=== PATIENT | male | born 1980 | race Caucasian/White ===

== ENCOUNTER → 2025-07-16 07:32 | Outpatient (REF) | payer BC, SELFPAY ==
[2025-07-16 10:12] LABS: ALT (SGPT) 32 U/L (0-50); AST (SGOT) 79 U/L (17-59); Albumin 3.2 g/dl (3.5-5.0); Alkaline Phosphatase 158 U/L (38-126); Blood Urea Nitrogen 10 mg/dl (9-20); Calcium 8.4 mg/dl (8.4-10.2); Carbon Dioxide 26 mmol/L (22-30); Chloride 108 mmol/L (98-107); Glucose 91 mg/dl (70-99); Potassium 4.5 mmol/L (3.5-5.1); Sodium 138 mmol/L (135-145); Total Protein 6.8 g/dl (6.3-8.2); eGFR > 60.00
[2025-07-16 10:14] LABS: INR 2.15; PT 24.1 Sec (11.4-14.6)
[2025-07-16 10:15] LABS: APTT 39.5 Sec (23.4-35.0)
[2025-07-16 10:53] LABS: Urine Character Clear (Clear)
[2025-07-16 12:06] LABS: Urine Red Blood Cell 0-2 /HPF (0-2); Urine Squamous Cell 0-2 /LPF (Few)
== END ==
LOC: HWRAD 07:32
PROVIDERS: ATTENDING PHYSICIAN Internal Medicine; FAMILY PHYSICIAN Student in an Organized Health Care Education/Training Program
DX: K70.30 Alcoholic cirrhosis of liver without ascites (principal); K70.10 Alcoholic hepatitis without ascites
CPT/HCPCS: 36415; 76700; 80053; 81003; 81015; 82248; 85610; 85730; 87040

== ENCOUNTER 2025-07-23 06:21 | Day surgery (SDC) | payer BC, SELFPAY | END 2025-07-23 10:04 | disposition home or self-care (01) | LOC: GI 06:21 | PROVIDERS: ATTENDING PHYSICIAN Internal Medicine Gastroenterology | DX: I85.10 Secondary esophageal varices without bleeding (principal); R63.4 Abnormal weight loss; K76.6 Portal hypertension; K26.9 Duodenal ulcer, unspecified as acute or chronic, without hemorrhage or perforation; K20.90 Esophagitis, unspecified without bleeding; K74.60 Unspecified cirrhosis of liver; K31.89 Other diseases of stomach and duodenum; Z13.810 Encounter for screening for upper gastrointestinal disorder | CPT/HCPCS: 43239; 88305; 88342 ==

== ENCOUNTER → 2025-07-25 08:02 | Outpatient (REF) | payer BC, SELFPAY ==
[2025-07-25 09:42] LABS: Hematocrit 35.4 % (39.0-52.0); Hemoglobin 12.2 g/dL (13.0-18.0); Mean Corp Hgb Conc. 34.5 g/dL (33.0-37.0); Mean Corpuscular Volume 97.3 fL (80.0-94.0); Nucleated Red Blood Cells % 0 % (-); Platelet Count 135 10^3/uL (130-400); Red Cell Dist. Width 16.8 % (11.5-14.5)
[2025-07-25 10:01] LABS: INR 2.02; PT 23.3 Sec (11.4-14.6)
[2025-07-25 10:02] LABS: APTT 30.3 Sec (23.4-35.0)
[2025-07-25 10:22] LABS: ALT (SGPT) 76 U/L (0-50); AST (SGOT) 106 U/L (17-59); Albumin 3.1 g/dl (3.5-5.0); Alkaline Phosphatase 117 U/L (38-126); Blood Urea Nitrogen 18 mg/dl (9-20); Calcium 8.6 mg/dl (8.4-10.2); Carbon Dioxide 28 mmol/L (22-30); Chloride 108 mmol/L (98-107); Glucose 66 mg/dl (70-99); Potassium 3.9 mmol/L (3.5-5.1); Sodium 139 mmol/L (135-145); Total Protein 6.3 g/dl (6.3-8.2); eGFR > 60.00
== END ==
LOC: REG 08:02
PROVIDERS: ATTENDING PHYSICIAN Internal Medicine; FAMILY PHYSICIAN Student in an Organized Health Care Education/Training Program
DX: K70.10 Alcoholic hepatitis without ascites (principal)
CPT/HCPCS: 36415; 80053; 85025; 85610; 85730

== ENCOUNTER 2025-07-31 09:52 | Inpatient (IN) | payer BC, SELFPAY ==
[2025-07-31] VITALS (13 sets, daily range): BP systolic 94–116; BP diastolic 52–73; BMI 23.9; BMI 22.3
[2025-07-31 05:43] LABS: COVID-19 Antigen Negative (Negative)
--- NOTE | 2025-07-31 06:05 | ED.GENMED ---
History of Present Illness
General
Chief Complaint: Fever
Source: patient and spouse
Exam Limitations: none
Time Seen by Provider: 07/31/25 05:52
History of Present Illness
History of Present Illness:
45-year-old male with a history of alcoholic cirrhosis presents with shaking chills and fever overnight. Started late last evening. 102 temp at 4 AM. No antipyretics. Denies other focal symptoms denying any sore throat respiratory symptoms chest
pain abdominal pain nausea vomiting urinary symptoms rash etc. Patient feels moderately improved at this time. Currently on 40 of prednisone a day for his cirrhosis
Past History
Past History
ED Past Medical History: Other (Cirrhosis/portal hypertension)
ED Past Surgical History: None
Review of Systems
Review of Systems
All Other Systems: Not applicable
Constitutional: Reports fever and chills
EENT: Reports no symptoms
Respiratory: Reports no symptoms
Cardiac: Reports no symptoms
ABD/GI: Reports no symptoms
: Reports no symptoms
Phy Exam
Physical Exam
Physical Exam:
GENERAL: Alert and oriented in no apparent distress
EYE: Orbits normal.
NECK: Supple, no significant adenopathy.
ENT: Pharynx without erythema
CARDIAC: Regular rate and rhythm without any obvious murmurs.
LUNGS: Clear breath sounds,normal
ABDOMEN: Soft, without focal tenderness or distention
NEUROLOGICAL: Alert and oriented , grossly non-focal
SKIN: Warm and dry, no rash or lesion, no discoloration, skin intact.
MUSCULOSKELETAL: No edema,no deformity.Good color
PSYCH: Normal and appropriate interaction.
Course
Orders/Labs/Results
Orders:
Orders
07/31/25 05:15
Ammonia Urgent
COVID-19 Antigen Urgent
Source: Nasal Swab
Complete Blood Count/With Diff Urgent
Comprehensive Metabolic Panel Urgent
Influenza A+B Rapid Molecular Urgent
ROMARIO Source: Nasal Swab
Specimen Description:
07/31/25 05:33
Lactic Acid Urgent
Blood Culture Urgent
ROMARIO Source: Blood/Venous
Specimen Description:
07/31/25 Breakfast
Regular
At Your Request: Full Participation
Does patient need a safe tray?: No
07/31/25 06:04
CXR2 [CR Chest - 2 Views ] Urgent
Comment:
Reason For Exam: fever
07/31/25 06:27
Ehrlichia/Anaplasma by PCR [S] Urgent
Lyme Progressive Urgent
PT/INR [Prothrombin Time] Urgent
PTT Urgent
Blood Parasites Urgent
ROMARIO Source: Blood/Venous
Specimen Description:
US Abdomen Complete/Upper Urgent
Comment:
Reason For Exam: elevated lfts. fever
07/31/25 06:28
Urinalysis Reflex To Culture Urgent
Date Specimen was Collected: 07/31/25
Time Specimen was Collected: 06:23
07/31/25 07:37
Piperacillin/Tazo 4.5 Gram [Zosyn] 4.5 gram in 100 ml IV NOW
07/31/25 07:56
Hydrocortisone Sod Succinate [Solu-Cortef] 100 mg IV NOW STA
07/31/25 09:27
GASTROINTESTINAL CONSULT Routine
Consulting Provider: Dacia Richards
Was physician already notified: Yes
07/31/25 09:29
Admit/Transfer Patient As Directed
Co-Sign Provider:
Level of Care: Inpatient admission
Assign to:: Telemetry
Physician / Group: svitlana vasquez
Diagnosis: Pneumonia,Liver cirrhosis,hepatic encephalopathy
Reason for Telemetry: Arrhythmia
Date to Stop Telemetry: 08/03/25
Time to Stop Telemetry: 11:00
Reason for Hospitalization: Pneumonia,Liver cirrhosis,hepatic encephalopathy
Expected length of stay greater than two midnights?: Yes
ELOS- Estimated Length of Stay in days: 3
I certify the patient meets the requirements for IP care: Yes
PRN Pain Medication Management As Directed
May give lesser potent ordered pain med per pt: Yes
preference::
Protocol:: Medication orders for pain may be administered in a
manner that supports deferring to patient preference
when the pt is:
- Requesting an ordered lesser potent pain medication.
Least to most potent pain medications are defined
as: acetaminophen < NSAID < tramadol < opioids
(morphine, oxycodone, hydromorphone).
- Requesting a lesser dose of the same medication IF
ORDERED.
- Requesting a less intrusive route of administration
if both routes are prescribed by the provider (PO <
IV).
07/31/25 09:30
Code Status As Directed
Resuscitation Status: Full Code
07/31/25 10:00
Lactulose [Duphalac/Chronulac] 20 grams PO BID
07/31/25 11:13
Activity As Directed
Activity Level: As Tolerated
Intake/ Output As Directed
Frequency: Per unit guidelines
Pneumatic Compression Sleeves As Directed
Type: Knee high
Vital Signs As Directed
Frequency: Per unit guidelines
Weight As Directed
Frequency: Daily
Pulse Ox/spot Check [RESP] Routine
Quantity: 1
DX Deep Vein Thrombosis Video Routine
07/31/25 11:36
Blood Culture Urgent
ROMARIO Source: Blood/Venous
Specimen Description:
07/31/25 12:59
Vancomycin MRSA PCR Screen Routine
ROMARIO Source: N
Specimen Description:
Comment: Changed per pharmacy protocol
07/31/25 14:00
Piperacillin/Tazo 3.375 Gram [Zosyn] 3.375 gram in 50 ml IV Q6H
07/31/25 22:00
Diazepam [Valium] 2 mg PO HS
Propranolol [Inderal] 10 mg PO HS
08/01/25 06:53
Complete Blood Count/With Diff IN AM
Comprehensive Metabolic Panel IN AM
PTT IN AM
Prothrombin Time IN AM
08/01/25 08:00
Famotidine [Pepcid] 20 mg PO DAILY
Prednisone [Deltasone] 40 mg PO DAILY
Ursodiol [Malik] 500 mg PO DAILY
08/02/25 06:00
Complete Blood Count/With Diff IN AM
Comprehensive Metabolic Panel IN AM
PTT IN AM
Prothrombin Time IN AM
08/03/25 06:00
Complete Blood Count/With Diff IN AM
Comprehensive Metabolic Panel IN AM
PTT IN AM
Prothrombin Time IN AM
08/03/25 11:00
DC Protocol for Telemetry ONCE
08/04/25 06:00
Complete Blood Count/With Diff IN AM
Comprehensive Metabolic Panel IN AM
PTT IN AM
Prothrombin Time IN AM
08/05/25 06:00
Complete Blood Count/With Diff IN AM
Comprehensive Metabolic Panel IN AM
PTT IN AM
Prothrombin Time IN AM
Abnormal Lab Results
07/31/25 07/31/25
05:15 06:27
WBC 17.7 H 10^3/uL
(4.8-10.8)
RBC 3.82 L 10^6/uL
(4.70-6.10)
Hgb 12.9 L g/dL
(13.0-18.0)
Hct 36.6 L %
(39.0-52.0)
MCV 95.8 H fL
(80.0-94.0)
MCH 33.8 H pg
(27.0-31.0)
RDW 17.2 H %
(11.5-14.5)
Plt Count 98 L D 10^3/uL
(130-400)
Abs Immat Gran (auto) 0.1 H 10^3/uL
(0-0.05)
Absolute Neuts (auto) 12.3 H 10^3/uL
(1.4-6.5)
Absolute Monos (auto) 2.4 H 10^3/uL
(0.1-0.6)
Lymphocytes % 14.5 L %
(20.5-51.1)
Monocytes % 13.6 H %
(1.7-9.3)
PT 24.1 H Sec
(11.4-14.6)
Sodium 132 L mmol/L
(135-145)
Calcium 8.3 L mg/dl
(8.4-10.2)
Total Bilirubin 5.4 H mg/dl
(0.2-1.3)
AST 138 H U/L
(17-59)
ALT 102 H U/L
(0-50)
Ammonia 115 H umol/L
(9-30)
Total Protein 5.9 L g/dl
(6.3-8.2)
Albumin 3.0 L g/dl
(3.5-5.0)
07/31/25 05:15
07/31/25 05:15
Vital Signs
Initial and Last Documented VS:
Initial Vital Signs
Temp Pulse Resp BP Pulse Ox
99.8 F 95 20 111/73 94
07/31/25 04:59 07/31/25 04:59 07/31/25 04:59 07/31/25 04:59 07/31/25 04:59
Last Documented Vital Signs
Temp Pulse Resp BP Pulse Ox
98.3 F 74 12 114/71 98
08/01/25 11:00 08/01/25 11:00 08/01/25 11:00 08/01/25 11:00 08/01/25 11:26
MDM/Problems Addressed
Differential Diagnosis Includes:
45-year-old male sudden shaking chills and fever at home. No obvious clinical source. Appears nontoxic at this time. Workup in progress. To consider bacteremia, tickborne illness, viral illness. Patient is somewhat immunosuppressed on
prednisone. His abdomen is totally benign his lungs are clear he is in no respiratory distress.
*Radiology
Radiology exam reviewed: radiology read reviewed (Hepatic cirrhosis. Small amount of perihepatic/perisplenic ascites. Cholelithiasis. Gallbladder wall thickening.) and other (Possible small pneumonia on x-ray)
*Pulse Oximetry
SaO2: 97
Oxygen Mode of Delivery: Room air
Patient hypoxic: no
*Critical Care Note
Total Time (30-74mins, 75-104mins- exclusive of procedures): Not Applicable
Data Reviewed
Review of Other/Old Records Reveals: Labs, Records and Testing
Update Note
Update Note:
Elevated ammonia level. Mildly sleepy but fully alert. Discussed starting lactulose. Hospitalist and gastroenterology has to hold off until they evaluate. Source of fever uncertain at this time. Possibly gallbladder related. He has no
tenderness in the right upper quadrant however. Will start Zosyn. Also placed a call to patient's stave inspector at [facility]. Awaiting callback.
Patient rechecked multiple times. Is remained stable. Questionable pneumonia on x-ray
ED Attending Note
-
Portions of this chart may have been created with voice recognition software.� Occasional wrong word or��sound alike� substitutions may have occurred due to the inherent limitations of voice recognition software.
Discharge Plan
Departure
Patient Disposition: Admit
Date of Disposition: 07/31/25
Time of Disposition: 07:57
Presentation/result/management discussed w/ accepting MD/DO: gi
Discharge Problem:
Fever/immunosuppressed, Elevated transaminase, History of cirrhosis, Possible pneumonia
Interventions
Interventions:
*Risk Screen - Suicide Last Done: 07/31/25 04:59
*General Assessment Last Done: 07/31/25 04:59
*Neglect/Abuse Screening Last Done: 07/31/25 05:55
*ED- Fall Risk Assessment Last Done: 07/31/25 05:55
*ED COVID-19 Vaccine History Last Done: 07/31/25 05:55
*Nursing Disposition Last Done: 07/31/25 10:56
ED- Neurological Assessment Last Done: 07/31/25 05:55
ED-Skin Assessment Last Done: 07/31/25 05:55
Discharge Date and Time
Discharge Date/Time: 07/31/25 11:09
[2025-07-31 06:16] LABS: Ammonia 115 umol/L (9-30)
[2025-07-31 06:18] LABS: ALT (SGPT) 102 U/L (0-50); AST (SGOT) 138 U/L (17-59); Albumin 3.0 g/dl (3.5-5.0); Alkaline Phosphatase 126 U/L (38-126); Blood Urea Nitrogen 15 mg/dl (9-20); Calcium 8.3 mg/dl (8.4-10.2); Carbon Dioxide 25 mmol/L (22-30); Chloride 103 mmol/L (98-107); Estimated Creatinine Clearance > 125 ml/min; Glucose 99 mg/dl (70-99); Potassium 4.4 mmol/L (3.5-5.1); Sodium 132 mmol/L (135-145); Total Protein 5.9 g/dl (6.3-8.2); eGFR > 60.00
[2025-07-31 06:21] LABS: Hematocrit 36.6 % (39.0-52.0); Hemoglobin 12.9 g/dL (13.0-18.0); Mean Corp Hgb Conc. 35.2 g/dL (33.0-37.0); Mean Corpuscular Volume 95.8 fL (80.0-94.0); Nucleated Red Blood Cells % 0 % (-); Platelet Count 98 10^3/uL (130-400); Red Cell Dist. Width 17.2 % (11.5-14.5)
[2025-07-31] MEDS: ZOSYN 100 IV (07:45)
[2025-07-31 07:59] LABS: APTT 32.0 Sec (23.4-35.0); INR 2.11; PT 24.1 Sec (11.4-14.6)
[2025-07-31 08:01] LABS: Urine Character Clear (Clear)
[2025-07-31] MEDS: SOLU-CORTEF 100 MG IV (08:07)
--- NOTE | 2025-07-31 09:33 | HPS.HSE ---
Family Physician
-
Family Physician: Osmel Bowman, DO
Chief Complaint
-
Fever
History of Present Illness
45-year-old male with past medical history of alcohol cirrhosis, portal hypertension, advanced colon polyp came to the hospital with fever. Per patient he has been feeling better after he quit alcohol about a month ago. Overnight he started
feeling lethargic/weak. Per patient temp was 101.8 at home. Denies any sick contacts. Denies any abdominal pain, nausea, vomiting, diarrhea, constipation. Denies any chest pain, shortness of breath.
Medical History
Past Medical History
Past Medical History: Reports Other (Alcohol liver cirrhosis, colon polyp)
Past Surgical History: Reports None
Social History
Tobacco: Non-smoker
Alcohol: Former
Drug: None
Family History
Family History: Not pertinent
Allergies / Home Medications
Allergies reflects when Allergies were last updated in [employer].
Home Medications with original date entered in [employer]
Allergy/Medication List:
Allergies
Allergy/AdvReac Type Severity Reaction Status Date / Time
morphine Allergy Swelling Verified 07/31/25 12:30
Home Medications
diazepam 2 mg tablet (Valium) 2 mg PO HS Mental Health/Anxiety 07/31/25
prednisone 20 mg tablet 40 mg PO DAILY inflammation 07/31/25
propranolol 10 mg tablet 10 mg PO HS Liver Issues 07/31/25
ursodiol 250 mg tablet 500 mg PO DAILY gallbladder issue 07/31/25
Review of Systems
-
History Source: Patient
A 12 point ROS was completed and negative except as noted: Yes
Constitutional: Reports Fever and Fatigue
Physical Exam
Vital Signs
Vital Signs
Temp Pulse Resp BP Pulse Ox
99.8 F 81 19 111/63 95
07/31/25 07:51 07/31/25 09:00 07/31/25 09:00 07/31/25 09:00 07/31/25 09:00
Physical Exam
General: Well Nourished and No Apparent Distress
HEENT: NormoCephalic and Moist mucous membranes; No Anicteric
Respiratory: Clear and Non Labored Respirations; No Wheezes
Cardiac: S1/S2 and Regular Rhythm
Breast: Deferred by me
GI: Soft, Non Tender, Non Distended and Normal Bowel Sounds
Rectal: Deferred by Provider
Genito-urinary: No Daniel
Musculoskeletal: No Edema
Neuro: Awake, Alert and Oriented
Psych: Calm and Intact Judgment/Insight
Laboratory Results
-
07/31/25 05:15
07/31/25 05:15
Laboratory Results
PT 24.1 Sec (11.4-14.6) H 07/31/25 06:27
INR 2.11 07/31/25 06:27
APTT 32.0 Sec (23.4-35.0) 07/31/25 06:27
Lactic Acid 1.2 mmol/L (0.7-2.0) 07/31/25 05:33
Total Bilirubin 5.4 mg/dl (0.2-1.3) H 07/31/25 05:15
AST 138 U/L (17-59) H 07/31/25 05:15
ALT 102 U/L (0-50) H 07/31/25 05:15
Alkaline Phosphatase 126 U/L (38-126) 07/31/25 05:15
Data Reviewed
-
Diagnostic Radiology: Report Reviewed by me and Discussed with Patient
Ultrasound: Report Reviewed by me and Discussed with Patient
Lab Data: Labs Reviewed by me and Discussed with Patient
Impression/Plan
-
Sepsis (leukocytosis, tachypnea) suspect could be secondary to pneumonia
Chest x-ray with possible pneumonia
Start empiric antibiotic, check MRSA screen
Check blood culture
COVID-negative, UA without UTI. Lyme, Ehrlichia pending
Abdominal ultrasound with moderate hepatic cirrhosis, cholelithiasis. Severe diffuse gallbladder wall thickening without evidence of abnormal gallbladder distention, most consistent with inflammatory wall thickening secondary hepatic cirrhosis.
Currently patient has no abdominal pain. consider HIDA if do not improve
LFTs has been previously elevated and still high with elavted laura
GI consulted
Patient has been following up with Dr. Boston from hepatology
Per patient he has been started on prednisone by his GI. Added Pepcid
Recent EGD 07/23 outpatient with esophageal varices
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
Monitor
hx of alcohol use
last drink about a month ago
monitor
Hyponatremia
Monitor
Hepatic encephalopathy
Ammonia 113, start lactulose
DVT prophylaxis
SCDs
Full code
I spent a total of 76 minutes with the patient or on the floor. More than 50% of this time involved counseling and coordination of care.
--- NOTE | 2025-07-31 10:05 | PHA.VAN.IN ---
Assessment
- Assessment
Renal Function: Appears similar to baseline
Concomitant Antimicrobials: piperacillin/tazobactam
AUC Dosing Plan
- Dosing Variables
Dosing Weight (kg): 82
Dosing CrCl (ml/min): 125
Vd coefficient (L/kg): 0.7
- Empiric Dosing
Maintenance Regimen: Vanc 1500mg Q12H - first dose now then 1800 in lieu of load
Estimated AUC (mcg*h/mL): 523
Estimated Peak (mcg*h/mL): 36
Estimated Trough (mcg/ml): 11.5
Estimated Half Life (H): 6.4
- Monitoring
No levels ordered at this time: consider levels in next few days
Pharmacokinetics Vancomycin I
- -
Patient Age: 45
Patient Sex: Male
Vancomycin Day #: 1
Indication: Pulmonary/Respiratory
Requesting Provider: Dr. Lynch
Pertinent Antimicrobial Allergies:
no pertinent antibiotic allergies
Height / Weight:
Height 6 ft 1 in
Actual Weight 82.1 kg
Pertinent Past Medical History: cirrhosis
- Vital Signs / Lab Results
Temp Pulse Resp BP Pulse Ox
99.8 F 81 19 111/63 95
07/31/25 07:51 07/31/25 09:00 07/31/25 09:00 07/31/25 09:00 07/31/25 09:00
Lab Results - Hematology
07/31/25
05:15
WBC 17.7 H
Lab Results - Chemistry
07/31/25
05:15
BUN 15
Creatinine 0.8
Estimated Creat Clear > 125
Albumin 3.0 L
07/31/25
05:33
Lactic Acid 1.2
Lab Results - Urine
07/31/25
06:28
Urine Nitrite (Reflex) Negative
Leukocyte Esterase Rfl Negative
Microbiology Results
07/31/25 05:15 Influenza Types A & B ([facility]) - Final
Nasal Swab Negative for Influenza A & B, NAAT
Negative results must be combined with clinical observations
and patient history.
Nucleic Acid Amplification test (NAAT)performed on the
[employer] platform.
--- NOTE | 2025-07-31 11:37 | CON.GI ---
Addendum entered and electronically signed by Devner Richards MD 07/31/25 19:19:
I saw and examined the patient.
The LITIGATION ASSISTANT's note was reviewed and I agree with the note.
-fever/-CXR with early PNA/ sepsis on admission
-leukocytosis (infection vs steroid )
-ETOH hepatitis started on steroid course prior to admission 07/16 ( DF 62 )
- with improvement. current labs this admission DF 56.5 (control of 13), MELD 3.0 23
-elevated ammonia with concern for hepatic encephalopathy on admission but AAO x 3
- hx of ETOH abuse
-cirrhosis
plan
hold steroids
daily MELD labs
mx of sepsis/ PNA as per medical team
follow up with hepatology on discharge ( will request last visit records )
Original Note:
Consultation
-
Date/Time Consultation Requested: 07/31/25 09
Date/Time Consultation Performed: 07/31/25 1130
Requesting Provider: Domenic Lynch MD
Performing Provider: JUAN Méndez, denver Richards MD
Reason for Consultation: fever/ confusion
Medical History
Chief Complaint / HPI
Chief Complaint: rectal bleeding
History of Present Illness:
This is a 45 year old male with a past medical history of alcoholic cirrhosis (hx heavy ETOH use til rehab around 2020 then clean for 1 year and recent ETOH 2 shot at night til 5 weeks ago), portal HTN, no prior HE, EV bleeding (but noted Grade I
EV on EGD 07/2025 with portal HTN), or ascites, duodenal ulcers, colon polyps, prior endoscopic mucosal resection of a 25mm sigmoid polyp on 10/25/23 at [facility] with post polypectomy bleeding at [place], anxiety, rosacea and recent
evaluation with Dr. Allen in June with jaundice and wt loss with concern for ETOH hepatitis with hx cirrhosis. He was recommended EGD, labs to calculate DF, improved nutrition, liver serology work up , Dr. Boston evaluation and stressed ETOH
abstinence. Pt was started on Prednisolone and pepcid and started 07/16 for elevated DF. Pt had hepatology follow up with Adore Wilson and also scheduled with Dr. Boston in August. He admits to feeling improved since starting steroids until last
PM. Pt now presents with fever up to 101.8 at home with feeling of chills.
In review with patient he admits to some forgetfulness but denies dysphagia, GERD, nausea, vomiting, abdominal pain, diarrhea, constipation or bleeding. recent EGD this month with grade A esophagitis, grade I EV,no bleeding, portal HTN, bx with
clip, non bleeding DU, colon 2022 done after bleeding with clot injected and clipped, diverticulosis, 2 other clips and polyps seen. Pt aware will need eventual repeat colonoscopy with hx advanced polyps. labs on admission with WBC 17.7, hbg 12,9,
hct 36.6, platelet 98,000, INR 2.11, Na 132, K 4.4, bili 5.4, AST 138, ALT 102, alk phos 126 ammonia 115. Per pt malik added for itching.
OP labs:
07/10- Actin 33 (normal to 19), AFP 3.8, A1At 225, PAVEL neg, AMA <20, celiac 1073- Imm A, TTg IGG 9, TTG IGA 6, ceruloplasmin 24.4 , ferritin 246,iron 103, TIBC 206, sat 50, GGT 135 hep panel neg, immunoglobulin G 1632, Immunoglobulin M 196
07/16- INR 2.15 bili 6.9, d bili 4.8, AST 79, ALT 32, alk phos 158, WBC 9.2, hbg 12.9, hct 26.4, platelets 111
07/16- MED 22, DF 62.1
07/25/25 Lille score good prognosis to continue 40mg daily x 28 days then 20mg daily x 2 weeks then stop
07/25- INR 2.02, hbg 12,2, WBC 13,6m platelet bili 4,4, AST 106, ALT 76, alk phos 117, albumin 3.1
07/31/25 WBc 17.7, hbg 12,9, hct 36.6, platelet 98,000, INR 2.11, Na 132, K 4.4, bili 5.4, AST 138, ALT 102, alk phos 126 ammonia 115
Past Medical History
Past Medical History: Other (alcohol abuse, alcoholic cirrhosis, recent ETOH hepatitis with start of Prednisolone 07/16/25 bGrade I EV, portal HTN, DU, HE (new), anxiety, rosacea)
Past Surgical History: None
Social History
Tobacco: Non-Smoker
Alcohol: Chronic Alcoholic (last drink 5 weeks ago )
Drug: None
Personal:
Living: With Family
Employment: Disabled (with liver issues )
Family History
Family History: Other (colon polyps (mother and father); father with hx alcoholism )
Allergies / Home Medications
Allergy/AdvReac Type Severity Reaction Status Date / Time
morphine Allergy Swelling Verified 07/31/25 04:58
�Medication �Instructions �Recorded
diazepam 2 mg tablet (Valium) 2 mg PO HS Mental Health/Anxiety 07/31/25
prednisone 20 mg tablet 40 mg PO DAILY inflammation 07/31/25
propranolol 10 mg tablet 10 mg PO HS Liver Issues 07/31/25
ursodiol 250 mg tablet 500 mg PO DAILY gallbladder issue 07/31/25
Review of Systems
-
History Source: Patient
Constitutional: Reports Fever and Other (wt up and down with liver issues)
EENT: Reports No Symptoms
Respiratory: Reports No Symptoms
Cardiac: Reports No Symptoms
Abdomen/GI: Reports No Symptoms
: Reports No Symptoms
Musculoskeletal: Reports No Symptoms
Skin: Reports No Symptoms
Neurological: Reports No Symptoms
Endocrine: Reports No Symptoms
Hematologic/Lymphatic: Reports No Symptoms
Vital Signs
Temp Pulse Resp BP Pulse Ox
98.4 F 61 12 108/64 97
07/31/25 11:31 07/31/25 11:31 07/31/25 11:31 07/31/25 11:31 07/31/25 11:31
Physical Exam
Exam
General: Other (some forgetfulness in exam )
HEENT: Normocephalic
Respiratory: Clear
Cardiac: Regular Rhythm
GI: Soft, Non Tender and Non Distended
Musculoskeletal: No Clubbing and No Cyanosis
Skin: Warm and Dry
Neuro: Awake, Alert and Other (forgetful to occasional question, mild asterixis )
Psych: Calm
Results
WBC 17.7 10^3/uL (4.8-10.8) H 07/31/25 05:15
Hgb 12.9 g/dL (13.0-18.0) L 07/31/25 05:15
Hct 36.6 % (39.0-52.0) L 07/31/25 05:15
MCV 95.8 fL (80.0-94.0) H 07/31/25 05:15
Plt Count 98 10^3/uL (130-400) L D 07/31/25 05:15
Absolute Neuts (auto) 12.3 10^3/uL (1.4-6.5) H 07/31/25 05:15
PT 24.1 Sec (11.4-14.6) H 07/31/25 06:27
INR 2.11 07/31/25 06:27
APTT 32.0 Sec (23.4-35.0) 07/31/25 06:27
Sodium 132 mmol/L (135-145) L 07/31/25 05:15
Potassium 4.4 mmol/L (3.5-5.1) 07/31/25 05:15
Chloride 103 mmol/L (98-107) 07/31/25 05:15
Carbon Dioxide 25 mmol/L (22-30) 07/31/25 05:15
BUN 15 mg/dl (9-20) 07/31/25 05:15
Creatinine 0.8 mg/dL (0.7-1.3) 07/31/25 05:15
Calcium 8.3 mg/dl (8.4-10.2) L 07/31/25 05:15
Total Bilirubin 5.4 mg/dl (0.2-1.3) H 07/31/25 05:15
AST 138 U/L (17-59) H 07/31/25 05:15
ALT 102 U/L (0-50) H 07/31/25 05:15
Alkaline Phosphatase 126 U/L (38-126) 07/31/25 05:15
Diagnostic Image Results:
07/31/25 US Abdomen Complete/Upper
1. Moderate hepatic cirrhosis.
2. Minimal upper abdominal perihepatic and perisplenic ascites.
3. Mild distention of the common hepatic duct.
4. Cholelithiasis.
5. Severe diffuse gallbladder wall thickening without evidence for abnormal gallbladder distention (most consistent with inflammatory wall thickening secondary to hepatic cirrhosis).
07/31/25 CXR
Patchy airspace disease in the right lower lobe could be early pneumonia
Prior GI Procedures:
07/23/25 EGD [place]- - LA Grade A esophagitis with no bleeding.
- Grade I esophageal varices with no bleeding and no stigmata of
recent bleeding.
- Portal hypertensive gastropathy.
- Biopsies were taken with a cold forceps for Helicobacter pylori
testing. There was bleeding from one of the biopsy sites and clip
placed with hemostasis achieved
- Non-bleeding duodenal ulcers with no stigmata of bleeding.
- Normal first portion of the duodenum and second portion of the
duodenum.
10/2023- colonscopy- - Preparation of the colon was fair due to blood.
- Diverticulosis in the left colon.
- Blood in the entire examined colon.
- Clot with vessel in the ascending colon secondary to
previous polypectomy. Injected. Clips were placed.
- 2 other clips and polyps seen in the colon
- No specimens collected.
---[address] Bojorquez for treatment of a bleeding site from a prior polypectomy. Fair prep to the cecum, left-sided diverticulosis, red blood found throughout the colon without active bleeding.� Large pulsating vessel seen in
the ascending that was endoscopically treated with several other polyps seen in the colon
---Colonoscopy:[facility], pt reports 7 polyps were seen, 6 were removed, but a larger sigmoid polyp was recommended for EMR removal, which was performed 10/25/[address] Lynch at [facility].
--- 2017EGD 09/07/17 for dyspepsia: grade A esophagitis, biopsies with chronic inflammation consistent with GERD, otherwise normal, negative for h.pylori and celiac.
Assessment / Plan
-
This is a 45 year old male with a past medical history of alcoholic cirrhosis (hx heavy ETOH use til rehab around 2020 then clean for 1 year and recent ETOH 2 shot at night til 5 weeks ago), portal HTN, no prior HE, EV bleeding (but noted Grade I
EV on EGD 07/2025 with portal HTN), or ascites, duodenal ulcers, colon polyps, prior endoscopic mucosal resection of a 25mm sigmoid polyp on 10/25/23 at [facility] with post polypectomy bleeding at [place], anxiety, rosacea and recent
evaluation with Dr. Allen in June with jaundice and wt loss with concern for ETOH hepatitis with hx cirrhosis. He was recommended EGD, labs to calculate DF, improved nutrition, liver serology work up , Dr. Boston evaluation and stressed ETOH
abstinence. Pt was started on Prednisolone and pepcid and started 07/16 for elevated DF. Pt had hepatology follow up with Adore Wilson and also scheduled with Dr. Boston in August. He admits to feeling improved since starting steroids until last
PM. Pt now presents with fever up to 101.8 at home with feeling of chills.
OP labs:
07/10- Actin 33 (normal to 19), AFP 3.8, A1At 225, PAVEL neg, AMA <20, celiac 1073- Imm A, TTg IGG 9, TTG IGA 6, ceruloplasmin 24.4 , ferritin 246,iron 103, TIBC 206, sat 50, GGT 135 hep panel neg, immunoglobulin G 1632, Immunoglobulin M 196
07/16- INR 2.15 bili 6.9, d bili 4.8, AST 79, ALT 32, alk phos 158, WBC 9.2, hbg 12.9, hct 26.4, platelets 111
07/16- MED 22, DF 62.1
07/25/25 Lille score good prognosis to continue 40mg daily x 28 days then 20mg daily x 2 weeks then stop
07/25- INR 2.02, hbg 12,2, WBC 13,6m platelet bili 4,4, AST 106, ALT 76, alk phos 117, albumin 3.1
07/31 WBc 17.7, hbg 12,9, hct 36.6, platelet 98,000, INR 2.11, Na 132, K 4.4, bili 5.4, AST 138, ALT 102, alk phos 126 ammonia 115
-fever/sepsis on admission
-leukocytosis (infection vs steroid vs hepatitis related)
-ETOH hepatitis with steroid course prior to admission
-elevated ammonia with concern for hepatic encephalopathy on admission
-ETOH abuse
-CXR with early PNA
-cirrhosis
-thrombocytopenia
-hyponatremia
-EV grade I Non bleeding on recent EGD
-recent noted DU
-hypoalbuminemia
other med problem:
- colon polyps and prior endoscopic mucosal resection of a 25mm sigmoid polyp on 10/25/23- due eventual follow up
PLAN:
Etiology of fever related to early PNA vs other
no documented fever since admission
elevated WBC may be steroids vs infection
cont abx on Vanco and Zosyn
cont lactulose for concern for HE-
await further work up with blood cx, UA neg, no ascites to tap on EGD
pt still remains on steroids with ETOH hepatitis -- reviewed with Dr. Richards will hold steroid for now with fever work up in progress
pt also on Malik -- unclear if PRN or standing dose -- may have been started by hepatology
will request records of recent follow up
current DF 56.5 (control of 13), MELD 3.0 23 cont to trend daily labs
-
-
Thank you for consultation and allowing me to participate in the patient's care. Please call the educational program director GI physician during the after hours with any questions or concerns.
[2025-07-31] MEDS: FLUSH (NSS) 1 FLUSH IV ×3 (12:24→17:58)
[2025-07-31] MEDS: VANCOCIN 530 MG IV ×2 (12:24→17:58)
[2025-07-31] MEDS: DUPHALAC/CHRONULAC 20 GRAMS PO ×2 (12:25→20:51)
--- NOTE | 2025-07-31 13:16 | PTCARENOTE ---
Received pt from ER via stretcher; accompanied by ER staff. Pt AAO x3, VEE; able to ambulate to bed without assistance; denies weakness/dizziness. VSS. On room air- pulse ox 97%, no SOB noted. Abd soft, rounded, to start low fat diet. Pt denies
abd discomfort at present. pt DTV, aware of need for urine specimen; urinal at bedside. Afebrile; skin jaundiced, intact. oriented to 4[place], currently resting in bed, no c/o. Will continue to m nitor.
[2025-07-31] MEDS: ZOSYN 50 IV ×2 (14:12→20:51)
--- NOTE | 2025-07-31 16:02 | PTCARENOTE ---
Pt napping for short intervals; easily arousable; alert, oriented x 3 when awake. VEE well. VSS. On room air- pulse ox 95%. Abd soft, rounded, vinita PO, no c/o abd discomfort. Pt DTV- urinal at bedside. Resting quietly at present. Will continue
to monitor.
[2025-07-31] MEDS: VALIUM PO (20:50)
[2025-07-31] MEDS: VALIUM 2 MG PO (20:50)
[2025-07-31] MEDS: INDERAL 10 MG PO (20:51)
[2025-08-01] MEDS: ZOSYN 50 IV ×4 (02:09→20:11)
[2025-08-01 03:45] VITALS: BP 97/55
[2025-08-01] MEDS: VANCOCIN 530 MG IV (05:07)
[2025-08-01 06:00] VITALS: BMI 22.8
[2025-08-01 07:00] VITALS: BP 111/63
[2025-08-01] MEDS: DUPHALAC/CHRONULAC 20 GRAMS PO ×2 (07:44→20:10)
[2025-08-01] MEDS: URSO 500 MG PO (07:45)
[2025-08-01] MEDS: PEPCID 20 MG PO (07:45)
[2025-08-01 08:20] LABS: Hematocrit 36.8 % (39.0-52.0); Hemoglobin 12.6 g/dL (13.0-18.0); Mean Corp Hgb Conc. 34.2 g/dL (33.0-37.0); Mean Corpuscular Volume 97.9 fL (80.0-94.0); Nucleated Red Blood Cells % 0 % (-); Platelet Count 91 10^3/uL (130-400); Red Cell Dist. Width 17.3 % (11.5-14.5)
[2025-08-01 08:26] LABS: APTT 32.3 Sec (23.4-35.0); INR 1.93; PT 22.5 Sec (11.4-14.6)
[2025-08-01 08:59] LABS: Ammonia 37 umol/L (9-30)
[2025-08-01 09:02] LABS: ALT (SGPT) 81 U/L (0-50); AST (SGOT) 85 U/L (17-59); Albumin 2.8 g/dl (3.5-5.0); Alkaline Phosphatase 126 U/L (38-126); Blood Urea Nitrogen 15 mg/dl (9-20); Calcium 8.2 mg/dl (8.4-10.2); Carbon Dioxide 30 mmol/L (22-30); Chloride 107 mmol/L (98-107); Estimated Creatinine Clearance > 125 ml/min; Glucose 83 mg/dl (70-99); Potassium 3.4 mmol/L (3.5-5.1); Sodium 140 mmol/L (135-145); Total Protein 5.7 g/dl (6.3-8.2); eGFR > 60.00
[2025-08-01] MEDS: KCL 40 MEQ PO (10:12)
[2025-08-01 11:00] VITALS: BP 114/71
--- NOTE | 2025-08-01 12:44 | W.PN.HOSP.TC ---
Today's Communication/Plan
-
Monitor vital signs see plan
Continue with lactulose
Monitor ammonia
Replete potassium
Monitor leukocytosis
Follow cultures
Continue with antibiotic
Assessment / Plan
Assessment / Plan
General: Well Nourished and No Apparent Distress
HEENT: NormoCephalic and Moist mucous membranes; No Anicteric
Respiratory: Clear and Non Labored Respirations; No Wheezes
Cardiac: S1/S2 and Regular Rhythm
GI: Soft, Non Tender, Non Distended and Normal Bowel Sounds
Genito-urinary: No Daniel
Musculoskeletal: No Edema
Neuro: Awake, Alert and Oriented
Psych: Calm and Intact Judgment/Insight
Sepsis (leukocytosis, tachypnea) suspect could be secondary to pneumonia
Chest x-ray with possible pneumonia
MRSA screen negative. DC vancomycin. Continue with Zosyn
blood culture NGTD
COVID-negative, UA without UTI. Lyme, Ehrlichia pending
Abdominal ultrasound with moderate hepatic cirrhosis, cholelithiasis. Severe diffuse gallbladder wall thickening without evidence of abnormal gallbladder distention, most consistent with inflammatory wall thickening secondary hepatic cirrhosis.
Currently patient has no abdominal pain.
LFTs has been previously elevated and still high with elavted laura
GI following
Patient has been following up with Dr. Boston from hepatology
Holding prednisone per GI recommendation
Recent EGD 07/23 outpatient with esophageal varices
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
Monitor
Hypokalemia
Replete
hx of alcohol use
last drink about a month ago
monitor
Hyponatremia
Monitor
Hepatic encephalopathy
Ammonia 113 on admission, continue lactulose
Ammonia now 37
DVT prophylaxis
SCDs
Full code
Anticipated Discharge: Within 24 hours
Subjective/Interval History
-
Date of Service: August 01, 2025
Denies pain
Objective Data
-
Labs:
Laboratory Results
08/01/25
06:53
WBC 19.5 H
Hgb 12.6 L
Hct 36.8 L
Plt Count 91 L
PT 22.5 H
INR 1.93
APTT 32.3
Sodium 140 D
Potassium 3.4 L
Chloride 107
Carbon Dioxide 30
BUN 15
Creatinine 0.7
Glucose 83
Calcium 8.2 L
Total Bilirubin 4.1 H
AST 85 H
ALT 81 H
Alkaline Phosphatase 126
Vital Signs:
Vital Signs
Temp Pulse Resp BP Pulse Ox
98.3 F 74 12 114/71 98
08/01/25 11:00 08/01/25 11:00 08/01/25 11:00 08/01/25 11:00 08/01/25 11:26
I&O
07/31/25 08/01/25 08/02/25
06:59 06:59 06:59
Intake Total 1498 / 1498
Balance 1498 / 1498
--- NOTE | 2025-08-01 13:32 | CM ---
Alert awake oriented patient who lives with Estefanía in a 3 story with 0 steps and 25 steps to bed/bathroom. Pt is independent in driving and all ADLs.He uses no adaptive devices.
NO VN/SNF hx
Pharmacy [facility]
PCP DR Bowman
PLAN Home no needs
[2025-08-01 15:00] VITALS: BP 107/68
--- NOTE | 2025-08-01 15:04 | W.PN.GI.CBS2 ---
Addendum entered and electronically signed by Dacia Richards MD 08/01/25 15:13:
Advised on alcohol abstinence
Original Note:
Today's Communication / Plan
-
continue current mx as per medical team
d/c steroids
Assessment / Plan
-
This is a 45 year old male with a past medical history of alcoholic cirrhosis (hx heavy ETOH use til rehab around 2020 then clean for 1 year and recent ETOH 2 shot at night til 5 weeks ago), portal HTN, no prior HE, EV bleeding (but noted Grade I
EV on EGD 07/2025 with portal HTN), or ascites, duodenal ulcers, colon polyps, prior endoscopic mucosal resection of a 25mm sigmoid polyp on 10/25/23 at [facility] with post polypectomy bleeding at [place], anxiety, rosacea and recent
evaluation with Dr. Allen in June with jaundice and wt loss with concern for ETOH hepatitis with hx cirrhosis. He was recommended EGD, labs to calculate DF, improved nutrition, liver serology work up , Dr. Boston evaluation and stressed ETOH
abstinence. Pt was started on Prednisolone and pepcid and started 07/16 for elevated DF. Pt had hepatology follow up with Adore Wilson and also scheduled with Dr. Boston in August. He admits to feeling improved since starting steroids until last
PM. Pt now presents with fever up to 101.8 at home with feeling of chills.
OP labs:
07/10- Actin 33 (normal to 19), AFP 3.8, A1At 225, PAVEL neg, AMA <20, celiac 1073- Imm A, TTg IGG 9, TTG IGA 6, ceruloplasmin 24.4 , ferritin 246,iron 103, TIBC 206, sat 50, GGT 135 hep panel neg, immunoglobulin G 1632, Immunoglobulin M 196
07/16- INR 2.15 bili 6.9, d bili 4.8, AST 79, ALT 32, alk phos 158, WBC 9.2, hbg 12.9, hct 26.4, platelets 111
07/16- MED 22, DF 62.1
07/25/25 Lille score good prognosis to continue 40mg daily x 28 days then 20mg daily x 2 weeks then stop
07/25- INR 2.02, hbg 12,2, WBC 13,6m platelet bili 4,4, AST 106, ALT 76, alk phos 117, albumin 3.1
07/31 WBc 17.7, hbg 12,9, hct 36.6, platelet 98,000, INR 2.11, Na 132, K 4.4, bili 5.4, AST 138, ALT 102, alk phos 126 ammonia 115
-fever/sepsis on admission
-leukocytosis (infection vs steroid vs hepatitis related)
-ETOH hepatitis with steroid course prior to admission
-elevated ammonia with concern for hepatic encephalopathy on admission
-ETOH abuse
-CXR with early PNA
-cirrhosis
-thrombocytopenia
-hyponatremia
-EV grade I Non bleeding on recent EGD
-recent noted DU
-hypoalbuminemia
other med problem:
- colon polyps and prior endoscopic mucosal resection of a 25mm sigmoid polyp on 10/25/23- due eventual follow up
PLAN:
Etiology of fever related to early PNA vs other
no documented fever since admission
elevated WBC may be steroids vs infection
cont abx as per medical team
cont lactulose for concern for HE. Repeat ammonia 37
Repeat LFT this a.m-trending down
await further work up with blood cx, UA neg, no ascites to tap in imaging
Will hold off on steroids started for alcohol hepatitis by Dr. Tiffany rosas (background of sepsis)
Will recommend follow-up with Dr. Allen as outpatient to discuss on restarting steroids if indicated (once complete treatment for pneumonia)
Continue follow-up with hepatology
No further recommendation. Will sign off. Call us back if any question
Total Time Spent with Patient (in minutes): 35
Subjective
Subjective
Date of Service: August 01, 2025
Denies any GI complaint. No fever since admission
Objective
Data Reviewed
Laboratory Data:
Laboratory Results
08/01/25 06:53
08/01/25 06:53
Laboratory Results
PT 22.5 Sec (11.4-14.6) H 08/01/25 06:53
INR 1.93 08/01/25 06:53
APTT 32.3 Sec (23.4-35.0) 08/01/25 06:53
Total Bilirubin 4.1 mg/dl (0.2-1.3) H 08/01/25 06:53
AST 85 U/L (17-59) H 08/01/25 06:53
ALT 81 U/L (0-50) H 08/01/25 06:53
Alkaline Phosphatase 126 U/L (38-126) 08/01/25 06:53
Vital Signs and I&O:
Vital Signs
Temp Pulse Resp BP Pulse Ox
98.3 F 74 12 114/71 98
08/01/25 11:00 08/01/25 11:00 08/01/25 11:00 08/01/25 11:00 08/01/25 11:26
I&O
07/31/25 08/01/25 08/02/25
06:59 06:59 06:59
Intake Total 1498 / 1498
Balance 1498 / 1498
Physical Exam
Physical Exam
HEENT: Other (Icteric)
GI: Soft, Non Distended and Non Tender
[2025-08-01 15:22] LABS: Lyme Antibody Screen, EIA Negative (Negative)
[2025-08-01 19:25] VITALS: BP 148/84
[2025-08-01] MEDS: MAALOX 30 ML PO (20:39)
[2025-08-01] MEDS: VALIUM 2 MG PO (21:33)
[2025-08-01] MEDS: INDERAL 10 MG PO (21:33)
[2025-08-01 23:52] VITALS: BP 130/63
[2025-08-02] MEDS: ZOSYN 50 IV ×2 (03:00→08:08)
[2025-08-02 03:51] VITALS: BP 124/78
[2025-08-02 06:00] VITALS: BMI 23.4
[2025-08-02] MEDS: DUPHALAC/CHRONULAC 20 GRAMS PO (08:07)
[2025-08-02] MEDS: URSO 500 MG PO (08:07)
[2025-08-02] MEDS: PEPCID 20 MG PO (08:08)
[2025-08-02 08:30] VITALS: BP 105/70
[2025-08-02 09:00] LABS: INR 1.99; PT 22.7 Sec (11.4-14.6)
[2025-08-02 09:01] LABS: APTT 32.7 Sec (23.4-35.0)
[2025-08-02 09:22] LABS: ALT (SGPT) 76 U/L (0-50); AST (SGOT) 76 U/L (17-59); Albumin 2.6 g/dl (3.5-5.0); Alkaline Phosphatase 99 U/L (38-126); Blood Urea Nitrogen 9 mg/dl (9-20); Calcium 7.7 mg/dl (8.4-10.2); Carbon Dioxide 24 mmol/L (22-30); Chloride 105 mmol/L (98-107); Estimated Creatinine Clearance > 125 ml/min; Glucose 115 mg/dl (70-99); Potassium 3.8 mmol/L (3.5-5.1); Sodium 132 mmol/L (135-145); Total Protein 5.5 g/dl (6.3-8.2); eGFR > 60.00
[2025-08-02 09:25] LABS: Hematocrit 34.3 % (39.0-52.0); Hemoglobin 12.0 g/dL (13.0-18.0); Mean Corp Hgb Conc. 35.0 g/dL (33.0-37.0); Mean Corpuscular Volume 97.2 fL (80.0-94.0); Nucleated Red Blood Cells % 0 % (-); Platelet Count 90 10^3/uL (130-400); Red Cell Dist. Width 17.8 % (11.5-14.5)
--- NOTE | 2025-08-02 10:52 | W.PN.HOSP.TC ---
Today's Communication/Plan
-
Monitor vital signs see plan
Switch antibiotics to Augmentin and discharge
Discharge today
Patient to contact GI regarding when to resume prednisone
Time of discharge 38 minutes
Assessment / Plan
Assessment / Plan
General: Well Nourished and No Apparent Distress
HEENT: NormoCephalic and Moist mucous membranes; No Anicteric
Respiratory: Clear and Non Labored Respirations; No Wheezes
Cardiac: S1/S2 and Regular Rhythm
GI: Soft, Non Tender, Non Distended and Normal Bowel Sounds
Genito-urinary: No Daniel
Musculoskeletal: No Edema
Neuro: Awake, Alert and Oriented
Psych: Calm and Intact Judgment/Insight
Sepsis (leukocytosis, tachypnea) suspect could be secondary to pneumonia
Chest x-ray with possible pneumonia
MRSA screen negative. DC vancomycin. Continue with Zosyn. Switch antibiotics to Augmentin for 5 more days on discharge.
blood culture NGTD
COVID-negative, UA without UTI. Lyme negative, Ehrlichia pending
Abdominal ultrasound with moderate hepatic cirrhosis, cholelithiasis. Severe diffuse gallbladder wall thickening without evidence of abnormal gallbladder distention, most consistent with inflammatory wall thickening secondary hepatic cirrhosis.
Currently patient has no abdominal pain.
LFTs has been previously elevated and still high with elevated laura
GI following
Patient has been following up with Dr. Boston from hepatology
Holding prednisone per GI recommendation. Advised patient to follow-up with GI regarding when to resume prednisone
Recent EGD 07/23 outpatient with esophageal varices
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
Monitor
Hypokalemia
Resolved
hx of alcohol use
last drink about a month ago
monitor
Hyponatremia
Monitor
Hepatic encephalopathy
Ammonia 113 on admission, continue lactulose
Ammonia now 37
DVT prophylaxis
SCDs
Full code
Anticipated Discharge: Today
Subjective/Interval History
-
Date of Service: August 02, 2025
denies pain
Objective Data
-
Labs:
Laboratory Results
08/02/25
07:41
WBC 17.5 H
Hgb 12.0 L
Hct 34.3 L
Plt Count 90 L
PT 22.7 H
INR 1.99
APTT 32.7
Sodium 132 L D
Potassium 3.8
Chloride 105
Carbon Dioxide 24
BUN 9
Creatinine 0.7
Glucose 115 H
Calcium 7.7 L
Total Bilirubin 5.7 H
AST 76 H
ALT 76 H
Alkaline Phosphatase 99
Vital Signs:
Vital Signs
Temp Pulse Resp BP Pulse Ox
99.7 F 90 18 105/70 97
08/02/25 08:30 08/02/25 08:30 08/02/25 08:30 08/02/25 08:30 08/02/25 09:23
I&O
08/01/25 08/02/25 08/03/25
06:59 06:59 06:59
Intake Total 1498 / 1498 2940 / 2940 480 / 480
Balance 1498 / 1498 2940 / 2940 480 / 480
--- NOTE | 2025-08-02 10:57 | W.DCSUMMARY ---
Discharge Summary
Discharge Data
Date of Admission: 07/31/25
Date of Discharge: 08/02/25
-
Pending Results: No
Hospital Course
This 45-year-old male with past medical history of hepatic cirrhosis, history of alcohol use came to the hospital with sepsis secondary to pneumonia. Patient was initially started on IV antibiotic which were later transitioned to p.o. Augmentin
prior to discharge. Blood culture continue to be negative throughout hospitalization. Abdominal ultrasound was done which showed moderate hepatic cirrhosis. Diffuse gallbladder thickening however there is no distention and patient had no
abdominal pain. Patient was also seen by gastroenterology throughout hospitalization. He did not had elevated ammonia on admission which continue to improve with lactulose which was continued on discharge. Once his symptoms continue to improve,
he was then discharged home with instructions to follow-up with all his physicians outpatient.
Discharge Plan
-
Patient Disposition: Home (Routine Discharge)
Discharge Diagnosis/Procedures: Community-acquired pneumonia
Liver cirrhosis
Hepatic encephalopathy
Diet: As tolerated
Activity: As tolerated
Driving Restrictions: As prior to admission
Bathing Restrictions: None
Blood Work: CBC, CMP with primary care provider next week
Activity Restrictions/Additional Instructions:
Follow-up with spinal surgeon outpatient
Referrals:
Osmel Bowman DO [Family Provider, Family Practice] - in less than 1 week
Anh Allen DO [Active, Gastroenterology]
Prescriptions:
New
lactulose 10 gram/15 mL Solution
20 g PO BID Qty: 1200 0RF
amoxicillin-pot clavulanate 875-125 mg tablet
1 tab PO Q12H Qty: 10 0RF
Continued
propranolol 10 mg Tablet
10 mg PO HS
diazepam [Valium] 2 mg Tablet
2 mg PO HS
Patient Comments:
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
ursodiol 250 mg Tablet
500 mg PO DAILY
Patient Comments:
per pt takes only if needed
Held
prednisone 20 mg Tablet
40 mg PO DAILY
Hold Instructions: Restart when okay with gastroenterology
Discharge Orders:
Discharge Patient (As Directed); Ordered 08/02/25
Ordered By: Domenic Lynch
Discharge Date and Time
Discharge Date/Time: 08/02/25 12:21
Print Language: IRISH
--- NOTE | 2025-08-02 10:58 | CM ---
MD entered order for discharge.
Pt said he was ready for discharge.
Estefanía will drive him home.
PLAN Home no needs
[2025-08-02 11:52] VITALS: BP 114/79
== END 2025-08-02 12:21 | disposition home or self-care (01) | DRG 871 ==
LOC: 4 EAST ACU 09:52
PROVIDERS: Nurse Practitioner Adult Health; Student in an Organized Health Care Education/Training Program; ADMITTING PHYSICIAN Internal Medicine; CONSULT PHYSICIAN Internal Medicine Gastroenterology; EMERGENCY PHYSICIAN Emergency Medicine; FAMILY PHYSICIAN Student in an Organized Health Care Education/Training Program
DX: A41.9 Sepsis, unspecified organism (principal); J18.9 Pneumonia, unspecified organism; K76.6 Portal hypertension; D84.9 Immunodeficiency, unspecified; E87.1 Hypo-osmolality and hyponatremia; K70.30 Alcoholic cirrhosis of liver without ascites; D69.6 Thrombocytopenia, unspecified; E87.6 Hypokalemia; K76.82 Hepatic encephalopathy; F41.9 Anxiety disorder, unspecified; E88.09 Other disorders of plasma-protein metabolism, not elsewhere classified; L71.9 Rosacea, unspecified; K70.10 Alcoholic hepatitis without ascites; F10.10 Alcohol abuse, uncomplicated; Z83.719 Family history of colon polyps, unspecified; Z81.1 Family history of alcohol abuse and dependence; Z79.52 Long term (current) use of systemic steroids; Z86.0100 Personal history of colon polyps, unspecified; Z88.5 Allergy status to narcotic agent; Z11.52 Encounter for screening for COVID-19
CPT/HCPCS: 71046; 76700; 80053; 80306; 80307; 81003; 82140; 83605; 85025; 85610; 85730; 86618; 87015; 87040; 87207; 87468; 87484; 87502; 87641; 87798; 87811; 96365; 96375; 99285

== ENCOUNTER 2025-11-18 06:31 | Day surgery (SDC) | payer BC, SELFPAY | END 2025-11-18 15:13 | disposition home or self-care (01) | LOC: GI 06:31 | PROVIDERS: ATTENDING PHYSICIAN Internal Medicine | DX: Z12.11 Encounter for screening for malignant neoplasm of colon (principal); K64.9 Unspecified hemorrhoids; K57.30 Diverticulosis of large intestine without perforation or abscess without bleeding; K63.89 Other specified diseases of intestine; D12.3 Benign neoplasm of transverse colon; D12.8 Benign neoplasm of rectum; K63.5 Polyp of colon; Z98.890 Other specified postprocedural states; Z86.0101 Personal history of adenomatous and serrated colon polyps | CPT/HCPCS: 45385; 45380; 88305 ==